=== PATIENT | female | born 1945 | race Caucasian/White ===

== ENCOUNTER 2018-04-07 17:40 | Inpatient (IN) | payer OTHER, MEDICARE ==
[~2018-04-07] VITALS: Ht 172.7 cm; Wt 59.4 kg
[~2018-04-07 17:40] MED LIST: CIPROFLOXACIN500 M2 PO; FLAGYL ER750 MG PO; FLAGYL500 MG PO; LIVER COMPLEX1 EACH PO; MAGNESIUM400 M1 PO; MULTI-DAY VITA1 EACH PO; VITAMIN D3400 UNI1 PO; ZYRTEC10 M6 PO; [UNRECOGNIZED DRUG - OTHER] PO
[2018-04-07 18:25] LABS: ABSOLUTE BASOPHIL COUNT 0 /CUMM (0.0-0.2); ABSOLUTE EOSINOPHIL COUNT 0.1 /CUMM (0.0-0.7); ABSOLUTE LYMPH COUNT 2.6 /CUMM (1.2-3.4); ABSOLUTE MONOCYTE COUNT 0.5 /CUMM (0.10-0.60); BASOPHIL % 0.5 % (0.0-2.0); EOSINOPHIL % 1.4 % (0-5); GRANULOCYTE % 60.2 % (42.2-75.2); HEMATOCRIT 42.8 % (37-47); MEAN CORPUSCULAR HGB 30.8 PG (27.0-31.0); MEAN CORPUSCULAR HGB CONC 33.8 G/DL (33.0-37.0); MEAN CORPUSCULAR VOLUME 91.2 FL (81.0-99.0); MEAN PLATELET VOLUME 7.6 FL (7.4-10.4); PLATELET COUNT 292 /CUMM (130-400); RBC DISTRIBUTION WIDTH 13.9 % (11.5-14.5); WHITE BLOOD CELL COUNT 8.3 /CUMM (4.8-10.8)
--- NOTE | 2018-04-07 18:33 | RADIOLOGY REPORT ---
EXAMINATION: XR CHEST CLINICAL INFORMATION: Chest pain COMPARISON: 07/24/2017 TECHNIQUE: 2 views of the chest were obtained. FINDINGS: The lungs are hyperinflated with no focal consolidation, pulmonary edema, or pleural effusion. Stable cardiomediastinal silhouette. IMPRESSION: No acute cardiopulmonary findings. Probable COPD.
--- NOTE | 2018-04-07 20:48 | ED CARDIAC/CP/PALPITATIONS ---
History of Present Illness General Chief Complaint: Chest Pain Stated Complaint: DIZZY,RACING HEART Source: patient, family Exam Limitations: no limitations Allergies Uncoded Allergies: DUST (Mild, TEARY 11/15/12) MOLD (Mild, TEARY 11/15/12) Reconcile Medications Cetirizine HCl (Zyrtec) 10 MG CAPSULE 1 CAP PO DAILY ALLERGIES (Reported) Cholecalciferol (Vitamin D3) (Vitamin D3) (Unknown Strength) TABLET 1 TAB PO DAILY SUPPLEMENT (Reported) Ciprofloxacin HCl 500 MG TABLET 1 TAB PO BID INFECTION . Genistein/Cit Zn Bisgly/Vit D3 (Feed Mill Operator-Gstn Capsule) 27 MG-20 MG-200 UNIT CAPSULE 1 CAP PO BID OSTEOPENIA (Reported) Magnesium Oxide (Magnesium) (Unknown Strength) CAPSULE 1 CAP PO DAILY SUPPLEMENT (Reported) Metronidazole (Flagyl) 500 MG TABLET 1 TAB PO TID INFECTION . Milk Thistle/Nac/Dandel/Turmer (Liver Complex Tablet) (Unknown Strength) TABLET 1 TAB PO DAILY SUPPLEMENT (Reported) Multivitamin (Multi-Day Vitamins) 1 EACH TABLET 1 TAB PO DAILY SUPPLEMENT ( Reported) Triage Note: triage: 72 Y/O FEMALE PRESENTS C/O POUNDING HEART, DIZZINESS SINCE THIS MORNING. HEART RATE APPEARS TO JUMP AROUND ON PORTABLE PULSE OXIMETER IN TRIAGE. HISTORY OF PACs (FOLLOWED BY DR WAGGONER). Triage Nurses Notes Reviewed? yes Onset: Abrupt Duration: day(s): (1), changing over time, continues in ED Timing: recent history Quality/Severity: moderate, pressure Location: central Radiation: no radiation Activities at Onset: none Prior Chest Pain/Card Workup: echocardiography, stress test Modifying Factors: Worsens With: movement. Nitro Today/Relief: no nitro taken today Aspirin Today: 325 mg x 1, provided at home Associated Symptoms: dizziness LMP (ages 10-50): post menopausal : No Patient currently breastfeeds: No HPI: 72-year-old female past medical history of migraine headaches, PACs present evaluation of palpitations chest pressure and dizziness. Patient reports she has a history of premature atrial contractions that cause her to have palpitations. She's been doing this for the past several months. She seen Dr. Waggoner and has had an echocardiogram and stress test which both were negative stress test was last month. She states that she usually would get some palpitations that they're pretty minor. Today she had much more palpitations than usual they were more intense associated with chest pressure and dizziness. States that the symptoms were intermittent and would come and go. Currently she has no chest pressure. She does feel dizzy especially with movement. No hemoptysis no lower extremity edema no recent surgery or recent trauma no history of A. fib she's not on any blood thinners no melena no bright red blood per rectum. No syncopal episodes. (Jong Hammond) Vital Signs & Intake/Output Vital Signs & Intake/Output Vital Signs Date Time Temp Pulse Resp B/P B/P Pulse O2 O2 Flow FiO2 Mean Ox Delivery Rate 04/07 2127 167 144/79 04/07 1749 96.8 112 16 121/75 98 (Cielo MOTTA,Lobo Maldonado) Past History Travel History Traveled to [place] past 21 day No Medical History Any Pertinent Medical History? 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 No (Jong Hammond) Review of Systems Review of Systems Constitutional: Reports: no symptoms. EENTM: Reports: no symptoms. Respiratory: Reports: no symptoms. Cardiovascular: Reports: see HPI, chest pain, palpitations. GI: Reports: no symptoms. Genitourinary: Reports: no symptoms. Musculoskeletal: Reports: no symptoms. Skin: Reports: no symptoms. Neurological/Psychological: Reports: see HPI (dizzy). Hematologic/Endocrine: Reports: no symptoms. Immunologic/Allergic: Reports: no symptoms. All Other Systems: Reviewed and Negative (Jong Hammond) Physical Exam Physical Exam General Appearance: well developed/nourished, no apparent distress, alert, awake , appears younger than stated age Head: atraumatic, normal appearance Eyes: Bilateral: normal appearance, PERRL, EOMI. Ears, Nose, Throat: normal pharynx, normal ENT inspection, hearing grossly normal Neck: normal inspection, supple, full range of motion Respiratory: normal breath sounds, chest non-tender, no respiratory distress, lungs clear Cardiovascular: normal peripheral pulses, tachycardia, irregularly irregular Peripheral Pulses: 2+ radial (R), 2+ radial (L) Gastrointestinal: soft, non-tender Back: normal inspection, normal range of motion, no vertebral tenderness Extremities: normal inspection, normal range of motion, no edema Neurologic/Psych: no motor/sensory deficits, awake, alert, oriented x 3, normal gait, normal mood/affect Skin: intact, normal color, warm/dry Lymphatic: no anterior cervical zen Core Measures ACS in differential dx? Yes CVA/TIA Diagnosis No Sepsis Present: No Sepsis Focused Exam Completed? No (Mario Alberto KHAN,Jong) Progress Differential Diagnosis: AMI, aortic dissection, atrial fibrillation, cholecystitis, CHF/pulm edema, hyperkalemia, hyperthyroid, myocarditis, pancreatitis, pericarditis, pneumonia, PSVT, PUD/GERD, PVCs/PACs, unstable angina, V-fib/V-Tach, WPW syndrome Diagnostic Imaging: Viewed by Me: CT Scan. Discussed w/RAD: CT Scan. Radiology Impression: PATIENT: EUNICE PEDROZA PRESENT AGE: 72 PATIENT ACCOUNT NO: [id number] : 46 LOCATION: [facility] ORDERING PHYSICIAN: Jong KHAN SERVICE DATE: 04/07/18 EXAM TYPE: CAT - CT HEAD WO IV CONTRAST CT HEAD WO IV CONTRAST CLINICAL INFORMATION: Dizziness COMPARISON: No prior CT scan available for comparison. TECHNIQUE: Department standard protocol. DLP: 607 mGy-cm FINDINGS: CEREBRAL HEMISPHERES: There is no evidence of intra-axial or extra-axial mass, hemorrhage or acute infarct. BRAIN PARENCHYMA: Normal nassar-white matter differentiation. SUBDURAL SPACE: No bleed. BASAL GANGLIA AND PINEAL GLAND: There is 7 mm hypodense structure in the LEFT basal ganglia deep to the sylvian fissure along the external capsule, this could be a lacunar infarct, versus cystic lesion versus prominent sulcus. This may require an MRI for further characterization. VENTRICLES: Symmetric and normal in size. CEREBELLUM AND BRAINSTEM: No space-occupying mass, hemorrhage or acute infarct. CEREBELLOPONTINE ANGLES: No lesion found. ORBITS: No intraorbital mass. VESSELS: Unremarkable SKULL BASE: Unremarkable INCLUDED SINUSES AT SKULL BASE: Clear SKULL AND SKIN: No fracture or bone lesion found. IMPRESSION: 1. No CT evidence of intracranial mass or acute infarct. 2. There is 7 mm hypodense fluid attenuation structure in the LEFT basal ganglia along the external capsule just deep to the sylvian fissure, this could be a cystic lesion, prominent deep sulcus versus lacunar infarct. Follow-up nonurgent MRI recommended. DICTATED BY: Christian Vinson MD DATE/TIME DICTATED:04/07/182106 SOCIAL GROUP WORKER:HONG DATE/TIME TRANSCRIBED:04/07/182106 CONFIDENTIAL, DO NOT COPY WITHOUT APPROPRIATE AUTHORIZATION. <Electronically signed in Other Vendor System> SIGNED BY: Alisson MOTTA,Mónicaeer 04/07/182114 Initial ED EKG: PARIED SUPRAVENTRCUALR CONTRACTIONS Repeat EKG: changed (rapid A. fib) (Mario Alberto KHAN,Jong) Plan of Care: Orders Procedure Date/time Status Heart Healthy Diet 04/08 B Active Misc Message 04/07 2141 Active ED Holding Orders 04/07 2141 Active Admit to inpatient 04/07 2141 Active Vital Signs 04/07 2141 Active Code Status 04/07 2141 Active Patient Data 04/07 213 Active Add-on Test (ER Only) 04/07 204 Active EKG 04/07 204 Active Add-on Test (ER Only) 04/07 1942 Active Add-on Test (ER Only) 04/07 1856 Active TSH REFLEX 04/07 1815 Complete PARTIAL THROMBOPLASTIN TIME 04/07 1815 Complete PROTHROMBIN TIME 04/07 181 Complete MAGNESIUM 04/07 181 Complete D-DIMER 04/07 181 Complete TROPONIN LEVEL 04/07 174 Complete COMPREHENSIVE METABOLIC PANEL 04/07 1749 Complete CBC WITHOUT DIFFERENTIAL 04/07 174 Complete EKG 04/07 1741 Active Current Medications Sig/Alvarez Start time Last Medication Dose Stop Time Status Admin Heparin Sodium 25,000 UNIT Q24H 04/07 2100 UNVr (Porcine) (Heparin) Sodium Chloride 500 ML Laboratory Tests 04/07/181814: Anion Gap 9, Estimated GFR > 60, BUN/Creatinine Ratio 22.2, Glucose 174 H, Calcium 9.6, Magnesium 2.2, Total Bilirubin 0.5, AST 48 H, ALT 51, Alkaline Phosphatase 103, Troponin I < 0.01, Total Protein 8.1, Albumin 4.4, Globulin 3.7 , Albumin/Globulin Ratio 1.2, TSH &T3 &Free T4 Intrp 3.330, PT 10.7, INR 0.98, APTT 32, D-Dimer High Sensitivty < 200, CBC w Diff NO MAN DIFF REQ, RBC 4.70, MCV 91.2, MCH 30.8, MCHC 33.8, RDW 13.9, MPV 7.6, Gran % 60.2, Lymphocytes % 31.4, Monocytes % 6.5, Eosinophils % 1.4, Basophils % 0.5, Absolute Granulocytes 5.0, Absolute Lymphocytes 2.6, Absolute Monocytes 0.5, Absolute Eosinophils 0.1, Absolute Basophils 0 She is here for evaluation of palpitations chest pressure and dizziness. On initial evaluation she is tachycardic to 112. EKG shows paired supraventricular premature contractions. Patient was placed on telemetry labs chest x-ray head CT ordered. Reevaluation compliance monitor revealed an irregularly irregular rhythm at a rate of 140s that appeared to be atrial fibrillation. This was confirmed on EKG. Spoke with Dr. Cody, supervisor ship maintenance services, recommends IV Cardizem and IV heparin. Patient will be admitted for new onset atrial fibrillation. Patient was given 10 mg of IV Cardizem with good effect her heart rate now is atrial fibrillation at a rate of 102. Case was discussed with Dr. Buck he agrees the plan. Remaining evaluation within normal limits. There was a cyst seen on the head CT and radiologist recommended follow-up MRI. No acute bleeds. Remaining lab work unremarkable. D-dimer negative. (Mario Alberto KHAN,Jong) Comments: 04/07/2018 8:49:21 PM during my evaluation of Eunice, she was complaining of a pronounced heartbeat. She appeared to be in rapid atrial fibrillation on the heart monitor and so an EKG has been ordered. I have notified the PA regarding this finding as he was on the phone with the supervisor ship maintenance services. fortunately the patient is currently minimally symptomatic (feeling a pronounced heartbeat). (Cielo MOTTA,Lobo Maldonado) Departure Departure Disposition: STILL A PATIENT Condition: Stable Clinical Impression Primary Impression: New onset atrial fibrillation Referrals: Colby MOTTA,Cecil Ordoñez (PCP/Family) Departure Forms: Customer Survey General Discharge Information Admission Note Spoke With: Ozzy Zaldivar MD Documentation of Exam: Documentation of any treatments & extenuating circumstances including Concerns Regarding Discharge (functional status, medication knowledge or non-compliance, living conditions, etc.) that warrant an admission rather than observation: [ Telemetry, serial labs, serial EKGs, cardiology consult, echocardiogram, IV heparin, IV Cardizem] (Jong Hammond) PA/TUBE MACHINE OPERATOR HELPER Co-Sign Statement Statement: ED Attending supervision documentation- [X] I saw and evaluated the patient. I have also reviewed all the pertinent lab results and diagnostic results. I agree with the findings and the plan of care as documented in the PA's/TUBE MACHINE OPERATOR HELPER's documentation. [] I have reviewed the ED Record and agree with the PA's/TUBE MACHINE OPERATOR HELPER's documentation. [] Additions or exceptions (if any) to the PAs/TUBE MACHINE OPERATOR HELPER's note and plan are summarized below: [] (Cielo MOTTA,Lobo Maldonado) Critical Care Note Critical Care Note Critical Care Time: 30-74 min (Cielo MOTTA,Lobo Maldonado)
--- NOTE | 2018-04-07 21:15 | CT SCAN REPORT ---
CT HEAD WO IV CONTRAST CLINICAL INFORMATION: Dizziness COMPARISON: No prior CT scan available for comparison. TECHNIQUE: Department standard protocol. DLP: 607 mGy-cm FINDINGS: CEREBRAL HEMISPHERES: There is no evidence of intra-axial or extra-axial mass, hemorrhage or acute infarct. BRAIN PARENCHYMA: Normal nassar-white matter differentiation. SUBDURAL SPACE: No bleed. BASAL GANGLIA AND PINEAL GLAND: There is 7 mm hypodense structure in the LEFT basal ganglia deep to the sylvian fissure along the external capsule, this could be a lacunar infarct, versus cystic lesion versus prominent sulcus. This may require an MRI for further characterization. VENTRICLES: Symmetric and normal in size. CEREBELLUM AND BRAINSTEM: No space-occupying mass, hemorrhage or acute infarct. CEREBELLOPONTINE ANGLES: No lesion found. ORBITS: No intraorbital mass. VESSELS: Unremarkable SKULL BASE: Unremarkable INCLUDED SINUSES AT SKULL BASE: Clear SKULL AND SKIN: No fracture or bone lesion found. IMPRESSION: 1. No CT evidence of intracranial mass or acute infarct. 2. There is 7 mm hypodense fluid attenuation structure in the LEFT basal ganglia along the external capsule just deep to the sylvian fissure, this could be a cystic lesion, prominent deep sulcus versus lacunar infarct. Follow-up nonurgent MRI recommended.
[2018-04-07 21:16] LABS: PT 10.7 SEC (9.4-12.5); PTT 32 SEC (25-37)
[2018-04-07] MEDS ORDERED: CARDIZEM CD180 M1 PO (22:44)
[2018-04-07] MEDS ORDERED: PROBIOTIC1 EACH PO (22:45)
[2018-04-07] MEDS ORDERED: OMEGA 3-6-9 11200 MG PO (22:45)
[2018-04-07] MEDS ORDERED: CO-ENZYME Q101 EACH PO (22:46)
[2018-04-07] MEDS ORDERED: VITAMIN C500 M7 PO (22:47)
--- NOTE | 2018-04-07 23:10 | History & Physical ---
Shahab Buckley 04/07/18 3283: General Information and HPI MD Statement: I have seen and personally examined NICKI PEDROZA and documented this H&P. The patient is a 72 year old F who presented with a patient stated chief complaint of PALPITATIONS, CHEST PRESSURE, DIZZINESS. Source of Information: patient, old records Exam Limitations: no limitations History of Present Illness: Patient is a 72-year-old female with past medical history of migraine headaches, PACs, osteopenia, knee arthroplasty, and an episode of colitis who presents with palpitations, chest pressure and dizziness. Patient states that she experienced a pounding in her chest with some complaints of left chest tightness. This lasted for roughly 2 hours, then resolved, then recurred again which prompted her to drive her to the emergency department. She has no significant cardiac history. Family history is notable for CVA/HTN in multiple first and second-degree relatives. Following discovery of PACs detected with preop testing, patient saw Dr. Dumas. She underwent echocardiography and nuclear exercise stress testing that was reportedly negative. Started on diltiazem, proceeded with IV vitrectomy. She drinks a cup of coffee a day and 4 alcoholic drinks weekly. She has good exercise tolerance, states that she has normal resting bradycardia heart rate 50s-60s. On presentation her vitals were notable for irregular heart rate ranging from 110-170. CBC and chemistries were unremarkable. Thyroid function, troponin, d-dimer were all within normal limits. She had an incidental finding on head CT of a basal ganglia cystic lesion. Chest x-ray showed hyperinflation without acute cardiopulmonary disease. Echocardiogram from December 2017 showed normal LVEF and pulmonary hypertension she was started on a heparin drip and given 10 mg and 50 mg of Cardizem with subsequent conversion to NSR on the telemetry unit. Physical exam was unremarkable. Allergies/Medications Allergies: Uncoded Allergies: DUST (Mild, TEARY 11/15/12) MOLD (Mild, TEARY 11/15/12) Home Med list Ascorbic Acid (Vitamin C) 500 MG CAPSULE.ER 1 CAP PO DAILY Supplement ( Reported) Cholecalciferol (Vitamin D3) (Vitamin D3) (Unknown Strength) TABLET 2,000 MG PO DAILY SUPPLEMENT (Reported) Diltiazem HCl (Cardizem Cd) 180 MG CAP.ER.24H 1 CAP PO DAILY HEART HEALTH ( Reported) UNSURE OF DOSE Fish Oil/Borage/Flax/Om3,6,9#1 (Queen 3-6-9 1,200 MG Softgel) 1,200 MG CAPSULE 1 CAP PO DAILY Supplement (Reported) Lactobacillus Acidophilus (Probiotic) 10 BILLION CELL CAPSULE 1 CAP PO TID STOMACH HEALTH (Reported) Magnesium Oxide (Magnesium) (Unknown Strength) CAPSULE 400 MG PO DAILY SUPPLEMENT (Reported) Multivitamin (Multi-Day Vitamins) 1 EACH TABLET 1 TAB PO DAILY SUPPLEMENT ( Reported) Ubidecarenone/Vit E/Vit E Mix (Co-Enzyme Q10 100 MG Softgel) 100 MG-20 MG-15 MG CAPSULE 1 TAB PO DAILY Supplement (Reported) Compliance With Home Meds: GOOD Past History Travel History Traveled to [place] past 21 day No Medical History Neurological: migraine EENT: allergies, cataracts Cardiovascular: PACs Respiratory: NONE Gastrointestinal: NONE Hepatic: NONE Renal: NONE Musculoskeletal: osteopenia Psychiatric: NONE Endocrine: NONE Blood Disorders: NONE Cancer(s): NONE TRIP RIDER/Reproductive: NONE History of MRSA: No History of VRE: No History of CDIFF: No Surgical History Surgical History: R knee arthroscopy Past Family/Social History Psychosocial History Where do you live? Home Who Do You Live With? spouse Services at Home: None Primary Language: Mongolian Smoking Status: Never Smoked ETOH Use: occasional use Illicit Drug Use: denies illicit drug use Functional Ability ADLs Independent: dressing, eating, toileting, bathing. Ambulation: independent IADLs Independent: shopping, housework, finances, food prep, telephone, transportation , medication admin. Review of Systems Review of Systems Constitutional: Reports: no symptoms. Cardiovascular: Reports: see HPI, chest pain, palpitations. All Other Systems: Reviewed and Negative Exam & Diagnostic Data Last 24 Hrs of Vital Signs/I&O Vital Signs Date Time Temp Pulse Resp B/P B/P Pulse O2 O2 Flow FiO2 Mean Ox Delivery Rate 04/08 0641 98.1 59 18 120/60 98 Room Air 04/08 0507 54 120/60 04/08 0014 98.0 110 18 110/70 94 Room Air 04/07 2250 97.9 143 16 129/82 04/07 2247 97.9 143 18 129/82 97 Room Air 04/07 2137 167 144/79 04/07 2127 167 144/79 04/07 2017 Room Air 04/07 1749 96.8 112 16 121/75 98 Intake & Output 04/08 1600 04/08 0800 04/08 0000 Intake Total 360 Output Total Balance 360 Intake, Oral 360 Patient 129 lb Weight Weight Bed scale Measurement Method Physical Exam General Appearance Alert, Oriented X3, Cooperative, No Acute Distress Skin No Rashes, No Breakdown, No Significant Lesion Skin Temp/Moisture Exam: Warm/Dry HEENT Atraumatic, PERRLA, EOMI, Mucous Membr. moist/pink Neck Supple, No JVD, No thryomegaly Cardiovascular Regular Rate, Normal S1, Normal S2, No Murmurs, Gallops, Rubs Lungs Clear to Auscultation, Normal Air Movement Abdomen Normal Bowel Sounds, Soft, No Tenderness, No Hepatospenomegaly, No Masses Neurological Normal Speech, Strength at 5/5 X4 Ext, Normal Tone, Sensation Intact, Cranial Nerves 3-12 NL Extremities No Clubbing, No Cyanosis, No Edema, Normal Pulses, No Tenderness/ Swelling Last 24 Hrs of Labs/Haresh: Laboratory Tests 04/08/18 0600: D-Dimer High Sensitivty Cancelled 04/08/18 0455: Anion Gap 6, Estimated GFR > 60, BUN/Creatinine Ratio 23.8, Magnesium 2.3, Troponin I < 0.01, APTT > 120 *H, CBC w Diff NO MAN DIFF REQ, RBC 4.45, MCV 91.6 , MCH 30.9, MCHC 33.7, RDW 13.8, MPV 7.8, Gran % 49.1, Lymphocytes % 43.3, Monocytes % 5.9, Eosinophils % 1.4, Basophils % 0.3, Absolute Granulocytes 4.1, Absolute Lymphocytes 3.6 H, Absolute Monocytes 0.5, Absolute Eosinophils 0.1, Absolute Basophils 0 04/08/18 0055: Troponin I < 0.01 04/07/18 1815: Anion Gap 9, Estimated GFR > 60, BUN/Creatinine Ratio 22.2, Glucose 174 H, Calcium 9.6, Magnesium 2.2, Total Bilirubin 0.5, AST 48 H, ALT 51, Alkaline Phosphatase 103, Troponin I < 0.01, Total Protein 8.1, Albumin 4.4, Globulin 3.7 , Albumin/Globulin Ratio 1.2, TSH &T3 &Free T4 Intrp 3.330, PT 10.7, INR 0.98, APTT 32, D-Dimer High Sensitivty < 200, CBC w Diff NO MAN DIFF REQ, RBC 4.70, MCV 91.2, MCH 30.8, MCHC 33.8, RDW 13.9, MPV 7.6, Gran % 60.2, Lymphocytes % 31.4, Monocytes % 6.5, Eosinophils % 1.4, Basophils % 0.5, Absolute Granulocytes 5.0, Absolute Lymphocytes 2.6, Absolute Monocytes 0.5, Absolute Eosinophils 0.1, Absolute Basophils 0 Diagnostic Data EKG Results On admission, supraventricular contractions Currently, NSR CXR Results No acute cardiopulmonary findings Assessment/Plan Assessment: Patient is a 72-year-old female with past medical history of migraine headaches, PACs, osteopenia, knee arthroplasty, and an episode of colitis who presents with palpitations, chest pressure and dizziness. Problem list/plan: New onset atrial fibrillation DVT prophylaxis: Heparin drip and leg squeeze Heart healthy diet Patient is full code As Ranked By This Provider Problem List: 1. New onset atrial fibrillation Core Measures/Misc (04/30) Acute Coronary Syndrome ACS Diagnosis: No Congestive Heart Failure Congestive Heart Failure Diagnosis No Cerebrovascular Accident CVA/TIA Diagnosis: No VTE (View Protocol) VTE Risk Factors Acute Medical Illness No Mechanical VTE Prophylaxis d/t N/A MechProphylax Ordered No VTE Pharm Prophylaxis d/t NA PharmProphylax ordered Sepsis (View protocol) Sepsis Present: No If YES complete Sepsis Event Note If YES complete Sepsis Event Note Raphael Pino MD 04/08/18 0421: Core Measures/Misc (04/30) Sepsis (View protocol) If YES complete Sepsis Event Note If YES complete Sepsis Event Note Resident Review Statement Resident Statement: examined this patient, discussed with medical intern, agreed with medical intern, reviewed EMR data (avail) Other Findings: 72 year old female with PMH significant for migraines presents with new onset atrial fibrillation. She had sudden onset palpitations, lightheadedness, weakness, and pounding in her chest with some complaints of left chest tightness. It lasted for about two hours, then resolved, until recurring again precipitating her driving her to ED for evaluation. She doesn't have significant cardiac history. FH notable for CVA/HTN in multiple first and second degree relatives. She did see Dr. Dumas as a result of PACs detected on preoperative testing with noticeable palpitations. She underwent echocardiography and nuclear exercise stress testing that was reportedly negative. She was started on Diltiazem XL and proceeded with R eye vitrectomy uneventfully. She drinks 1 cup of coffee daily and four alcoholic drinks weekly. She has good exercise tolerance and states she normally has resting bradycardia into the HR 50s-60s. She never smoked but does report significant second hand exposure. On presentation, her vitals were notable for irregular heart rate ranging from 110-170. Her CBC, chemistries were unremarkable. Her thyroid function was within normal limits, initial troponin and d-Dimer were negative. She had an incidental finding on head CT of 7mm left basal ganglia cystic lesion vs lacunar infarct. Chest x-ray showed hyperinflation without acute cardiopulmonary disease. Her echocardiogram from 12/2017 showed normal LVEF and pulmonary hypertension RVSP 45-50mmHg. She was started on a heparin gtt and given 10mg and 15mg of cardizem IVP with subsequent conversion to NSR on the telemetry unit. Her physical exam was AAOx3, NAD, no JVD or carotid bruits, RRR s1 s2 no murmurs, lungs cta, abdomen soft nt/nd bs+, no peripheral edema and normal peripheral pulses. New onset atrial fibrillation: Admit to telemetry, monitor for tachy or ghada arrhythmias Continue heparin gtt for anticoagulation, CHADSvasc of 1, consider aspirin Cardiology consultation Check serial troponins and EKGs to evaluate for myocardial ischemia No need for repeat echocardiography at this time Add diltiazem 30mg po q8h if needed for rate control She is currently NSR in the 60s after spontaneous cardioversion Heart healthy diet DVT ppx-on heparin gtt Full code Kayley MOTTA,Ozzy Silver 04/08/18 0546: Core Measures/Misc (04/30) Sepsis (View protocol) If YES complete Sepsis Event Note If YES complete Sepsis Event Note Attending MD Review Statement Attending Statement Attending MD Statement: examined this patient, discuss w/resident/PA/ARCHITECTURAL COATING FINISHER, agreed w/resident/PA/ARCHITECTURAL COATING FINISHER Attending Assessment/Plan: 72 year-old presents with symptomatic rapid atrial fibrillation, new onset, had been started on jack blockade for frequent PAC's/PVC's (indeed- her first EKG in the ER demonstrated couplets of PAC's, before devolving into a rapid atrial fibrillation, in which she remains). Recent provocative testing done in last month was negative. Echocardiogram was done at that time and does not imply significant structural heart disease. She is in tune with her cardiac symptoms, and aware of these PAC's when they occur- and she is aware of ongoing palpitations and dizziness presently. Blood pressure remained stable but heart rates are approaching 150. Troponin negative. Incidental finding of hypodensity on the CT in the left basal ganglia would deserve follow up MRI in the future. Admit to inpatient for jack blockade and systemic anticoagulation for new onset atrial fibrillation. IV heparin and IV Cardizem bolus; drip to follow if necessary. Repeat cardiac enzymes. Will request Cardiology consultation. Converted back to sinus at 1AM.
[2018-04-08 00:14] VITALS: BP 110/70
[2018-04-08 05:43] LABS: ABSOLUTE BASOPHIL COUNT 0 /CUMM (0.0-0.2); ABSOLUTE EOSINOPHIL COUNT 0.1 /CUMM (0.0-0.7); ABSOLUTE GRANULOCYTE CT 4.1 /CUMM (1.4-6.5); ABSOLUTE LYMPH COUNT 3.6 /CUMM (1.2-3.4); ABSOLUTE MONOCYTE COUNT 0.5 /CUMM (0.10-0.60); BASOPHIL % 0.3 % (0.0-2.0); EOSINOPHIL % 1.4 % (0-5); GRANULOCYTE % 49.1 % (42.2-75.2); HEMATOCRIT 40.7 % (37-47); MEAN CORPUSCULAR HGB 30.9 PG (27.0-31.0); MEAN CORPUSCULAR HGB CONC 33.7 G/DL (33.0-37.0); MEAN CORPUSCULAR VOLUME 91.6 FL (81.0-99.0); MEAN PLATELET VOLUME 7.8 FL (7.4-10.4); PLATELET COUNT 288 /CUMM (130-400); RBC DISTRIBUTION WIDTH 13.8 % (11.5-14.5); RED BLOOD CELL CT 4.45 /CUMM (4.20-5.40); WHITE BLOOD CELL COUNT 8.4 /CUMM (4.8-10.8)
[2018-04-08 06:03] LABS: PTT > 120 SEC (25-37)
[2018-04-08 06:41] VITALS: BP 120/60
--- NOTE | 2018-04-08 09:46 | PN- Housestaff ---
Gavi MOTTA,Fausto 04/08/18 0946: Subjective Follow-up For: New onset atrial fibrillation Tele-Events Since Last Visit: Atrial fibrillation Heart rate 50s-100s Subjective: Patient seen and examined. She is seen sitting upright in bed resting comfortably. She appears to be in no acute distress. At her bedside is her . Patient states that she feels well and has no complaints and denies any further palpitations, chest pressure, or dizziness. She remains on anticoagulation and has concerns about remaining on it long-term as she has an active lifestyle and is worried about bleeding. She states that she feels as if she is at her baseline and would like to go home. Specifically she denies any fever, chills, current chest pain/pressure, shortness breath, neurologic symptoms, or abdominal pain per Review of Systems Constitutional: Reports: see HPI. Objective Last 24 Hrs of Vital Signs/I&O Vital Signs Date Time Temp Pulse Resp B/P B/P Pulse O2 O2 Flow FiO2 Mean Ox Delivery Rate 04/08 1356 97.5 65 20 128/66 96 Room Air Room Air 04/08 1353 65 128/66 04/08 0641 98.1 59 18 120/60 98 Room Air 04/08 0507 54 120/60 04/08 0014 98.0 110 18 110/70 94 Room Air 04/07 2250 97.9 143 16 129/82 04/07 2247 97.9 143 18 129/82 97 Room Air 04/07 2137 167 144/79 04/07 2127 167 144/79 04/07 2017 Room Air 04/07 1749 96.8 112 16 121/75 98 Intake & Output 04/08 1600 04/08 0800 04/08 0000 Intake Total 740.4 360 Output Total Balance 740.4 360 Intake, IV 140.4 Intake, Oral 600 360 Number 0 Bowel Movements Patient 58.287 kg Weight Weight Bed scale Measurement Method Physical Exam General Appearance: Alert, Oriented X3, Cooperative, No Acute Distress Other Physical Findings: General - well developed, thin elderly woman in no acute distress HEENT - NCAT, PERRL, EOMI, anicteric sclera Neck- Supple, no JVD/HJR, no bruits, trachea midline, thyroid normal Cardio - S1, S2 w/o murmurs/gallops/rubs; regular rate and rhythm Resp - Clear to auscultation bilaterally GI - Soft, nontender, nondistended, bowel sounds present Neuro - Awake and alert, CN II - XII grossly intact Extremities - No edema, pulses intact Current Medications: Current Medications Sig/Alvarez Start time Last Medication Dose Route Stop Time Status Admin Acetaminophen 650 MG Q6P PRN 04/08 0030 AC PO Apixaban 5 MG BID 04/08 2100 UNVr PO Diltiazem HCl 30 MG Q8 04/08 0600 AC 04/08 PO 1353 Diltiazem HCl 15 MG ONCE ONE 04/07 2230 DC 04/07 IV 04/07 Diltiazem HCl 0 .STK-MED ONE 04/07 2117 DC .ROUTE Diltiazem HCl 10 MG ONCE ONE 04/07 2100 DC 04/07 IV 04/07 Heparin Sodium 25,000 UNIT Q24H 04/070 DC 04/07 (Porcine) IV 220 Sodium Chloride 500 ML Heparin Sodium 0 .STK-MED ONE 04/07 2117 DC (Porcine) .ROUTE Heparin Sodium 4,000 UNIT ONCE ONE 04/07 2100 DC 04/07 (Porcine) IV 04/07 Heparin Sodium 25,000 UNIT Q24H 04/07 2100 CAN (Porcine) IV Sodium Chloride 500 ML Last 24 Hrs of Lab/Haresh Results Last 24 Hrs of Labs/Mics: Laboratory Tests 04/08/18 1255: APTT 87 H 04/08/18 0600: D-Dimer High Sensitivty Cancelled 04/08/18 0455: Anion Gap 6, Estimated GFR > 60, BUN/Creatinine Ratio 23.8, Magnesium 2.3, Troponin I < 0.01, APTT > 120 *H, CBC w Diff NO MAN DIFF REQ, RBC 4.45, MCV 91.6 , MCH 30.9, MCHC 33.7, RDW 13.8, MPV 7.8, Gran % 49.1, Lymphocytes % 43.3, Monocytes % 5.9, Eosinophils % 1.4, Basophils % 0.3, Absolute Granulocytes 4.1, Absolute Lymphocytes 3.6 H, Absolute Monocytes 0.5, Absolute Eosinophils 0.1, Absolute Basophils 0 04/08/18 0055: Troponin I < 0.01 04/07/18 1815: Anion Gap 9, Estimated GFR > 60, BUN/Creatinine Ratio 22.2, Glucose 174 H, Calcium 9.6, Magnesium 2.2, Total Bilirubin 0.5, AST 48 H, ALT 51, Alkaline Phosphatase 103, Troponin I < 0.01, Total Protein 8.1, Albumin 4.4, Globulin 3.7 , Albumin/Globulin Ratio 1.2, TSH &T3 &Free T4 Intrp 3.330, PT 10.7, INR 0.98, APTT 32, D-Dimer High Sensitivty < 200, CBC w Diff NO MAN DIFF REQ, RBC 4.70, MCV 91.2, MCH 30.8, MCHC 33.8, RDW 13.9, MPV 7.6, Gran % 60.2, Lymphocytes % 31.4, Monocytes % 6.5, Eosinophils % 1.4, Basophils % 0.5, Absolute Granulocytes 5.0, Absolute Lymphocytes 2.6, Absolute Monocytes 0.5, Absolute Eosinophils 0.1, Absolute Basophils 0 Assessment/Plan Assessment: 72-year-old woman with no significant past medical history seen for evaluation of palpitations, chest pressure, and dizziness found to be in new onset atrial fibrillation for which she was admitted to the telemetry floor. Patient spontaneously converted to normal sinus rhythm overnight. Patient received several IV pushes of Cardizem last evening with heart rates now within normal limits. Presently patient states that she feels well and is at baseline. Physical examination demonstrates a normal cardiopulmonary exam. Labs including CBC, and serum chemistry remain within normal limits. Serial troponin /EKG are unremarkable. TSH is within normal limits. Patient was seen by cruise consultant whom recommended transitioning heparin to oral Eliquis. Patient is an anticipated discharge to home tomorrow. Problem list -New onset atrial fibrillation, now in normal sinus rhythm -7 mm hypodense fluid attenuation structure in left basal ganglia -History of migraine headache -Osteopenia Plan -Continue telemetry admission -Telemetry monitoring -Switch cardizem back to CD 120 mg PO Daily -Switch heparin GGT to Eliquis 5 mg p.o. twice daily -consult with cardiology for new onset atrial fibrillation -no repeat echocardiogram at this time, patient had recent outpatient echocardiogram -Pain control with acetaminophen -Heart healthy diet -DVT prophylaxis with Eliquis -Full code -outpatient MRI for further characterization of basal ganglia cyst versus lacunar infarct -Outpatient pulmonology revaluation for pulmonary hypertension Problem List: 1. New onset atrial fibrillation Pain Ratin Pain Location: None Pain Goal: Remain pain free Pain Plan: See assessment Tomorrow's Labs & Rationales: ZORA Hollingsworth MD,Luis 04/08/18 1136: Attending MD Review Statement Attending Statement Attending MD Statement: examined this patient, discuss w/resident/PA/CREDIT RATING INSPECTOR, agreed w/resident/PA/CREDIT RATING INSPECTOR, discussed with family, reviewed EMR data (avail), discussed with nursing, amended to note Attending Assessment/Plan: Patient seen and examined. Lying comfortably in bed. Not in any acute distress. present at bedside. On the monitor she remains in atrial fibrillation. She was in rapid A. fib early on but has currently converted back to normal sinus rhythm. She is currently on anticoagulation with heparin infusion. Denies chest pain or shortness of breath. Denies palpitations. On examination heart sounds are regular. Lungs are clear to auscultation bilaterally. She has no peripheral edema. Problems: 1. Newly diagnosed atrial fibrillation 2. History of colitis. 3. History of PACs on jack blockage with Cardizem prior to hospitalization 4. Pulmonary hypertension Plan: -Patient is currently in sinus rhythm. Follow-up with the cardiology service regarding rate control medications. She presented in rapid A. fib despite her Cardizem 120 mg daily at home. -She has a ALVARO-VASC score of 2 placing her moderate to high risk for embolic events. Transition patient from heparin to Eliquis after evaluation by the cardiology service. -She had a recent echocardiogram that did not reveal any significant structural heart disease. Will hold off repeat an echocardiogram for now. -Echocardiogram did reveal pulmonary hypertension. Would recommend referral to the pulmonology service as an outpatient for further workup. heart disease. Will hold off repeat an echocardiogram for now. -Echocardiogram did reveal pulmonary hypertension. Would recommend referral to the pulmonology service as an outpatient for further workup.
--- NOTE | 2018-04-08 13:15 | Cons- Cardiology ---
General Information and HPI Consulting Request Date of Consult: 04/08/18 Requested By: Ozzy Zaldivar MD History of Present Illness: 72 year old patient with past medical history of migraine headaches, PACs, osteopenia, knee arthroplasty, and an episode of colitis, presented on 04/07 with palpitations, chest pressure and dizziness. Mrs Rai was feeling a pounding heart beat in the morning, which subsided after 2 hours, but when it recurred, along with lightheadedness and retrosternal pressure, she came to the ED, where she was found to be in new onset Atrial Fibrillation, which converted spontaneously to sinus rhythm. Troponins have been negative X 3 and no electrolyte imbalance was detected. Mrs Rai was evaluated by dr Dumas recently for palpitations, and an echocardiogram performed in 10/2017 showed a normal LVEF without any wall motion abnormalities, and mild thickening of the mitral leaflets. Allergies/Medications Allergies: Uncoded Allergies: DUST (Mild, TEARY 11/15/12) MOLD (Mild, TEARY 11/15/12) Home Med List: Ascorbic Acid (Vitamin C) 500 MG CAPSULE.ER 1 CAP PO DAILY Supplement ( Reported) Cholecalciferol (Vitamin D3) (Vitamin D3) (Unknown Strength) TABLET 2,000 MG PO DAILY SUPPLEMENT (Reported) Diltiazem HCl (Cardizem Cd) 180 MG CAP.ER.24H 1 CAP PO DAILY HEART HEALTH ( Reported) UNSURE OF DOSE Fish Oil/Borage/Flax/Om3,6,9#1 ([place] 3-6-9 1,200 MG Softgel) 1,200 MG CAPSULE 1 CAP PO DAILY Supplement (Reported) Lactobacillus Acidophilus (Probiotic) 10 BILLION CELL CAPSULE 1 CAP PO TID STOMACH HEALTH (Reported) Magnesium Oxide (Magnesium) (Unknown Strength) CAPSULE 400 MG PO DAILY SUPPLEMENT (Reported) Multivitamin (Multi-Day Vitamins) 1 EACH TABLET 1 TAB PO DAILY SUPPLEMENT ( Reported) Ubidecarenone/Vit E/Vit E Mix (Co-Enzyme Q10 100 MG Softgel) 100 MG-20 MG-15 MG CAPSULE 1 TAB PO DAILY Supplement (Reported) Current Medications: Current Medications Sig/Alvarez Start time Last Medication Dose Route Stop Time Status Admin Acetaminophen 650 MG Q6P PRN 04/08 0030 AC PO Diltiazem HCl 30 MG Q8 04/08 0600 AC PO Diltiazem HCl 15 MG ONCE ONE 04/070 DC 04/07 IV 04/07 Diltiazem HCl 0 .STK-MED ONE 04/07 2117 DC .ROUTE Diltiazem HCl 10 MG ONCE ONE 04/07 2100 DC 04/07 IV 04/07 Heparin Sodium 25,000 UNIT Q24H 04/07 2230 AC 04/07 (Porcine) IV 2204 Sodium Chloride 500 ML Heparin Sodium 0 .STK-MED ONE 04/07 2117 DC (Porcine) .ROUTE Heparin Sodium 4,000 UNIT ONCE ONE 04/07 2100 DC 04/07 (Porcine) IV 04/07 Heparin Sodium 25,000 UNIT Q24H 04/07 2100 CAN (Porcine) IV Sodium Chloride 500 ML Review of Systems Review of Systems: See HPI. 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 Home Who Do You Live With? spouse Services at Home: None Primary Language: Czech Smoking Status: Never Smoked ETOH Use: occasional use Illicit Drug Use: denies illicit drug use Functional Ability ADLs Independent: dressing, eating, toileting, bathing. Ambulation: independent IADLs Independent: shopping, housework, finances, food prep, telephone, transportation , medication admin. Exam & Diagnostic Data Vital Signs and I&O Vital Signs Date Time Temp Pulse Resp B/P B/P Pulse O2 O2 Flow FiO2 Mean Ox Delivery Rate 04/08 0641 98.1 59 18 120/60 98 Room Air 04/08 0507 54 120/60 04/08 0014 98.0 110 18 110/70 94 Room Air 04/07 2250 97.9 143 16 129/82 04/07 2247 97.9 143 18 129/82 97 Room Air 04/07 2137 167 144/79 04/07 2127 167 144/79 04/07 2017 Room Air 04/07 1749 96.8 112 16 121/75 98 Intake & Output 04/08 1600 04/08 0804/08 0000 04/07 1600 08/25 0800 08/25 0000 Intake Total 360 Output Total Balance 360 Intake, Oral 360 Patient 129 lb Weight Weight Bed scale Measurement Method Physical Exam: General Appearance Alert, Oriented X3, Cooperative, No Acute Distress HEENT Atraumatic, PERRLA, EOMI, Mucous Membr. moist/pink Neck Supple, No JVD, trachea midline Cardiovascular Regular Rate, Normal S1, Normal S2, No audible Murmurs or Rub Lungs Clear to Auscultation, Normal Air Movement Abdomen Normal Bowel Sounds, Soft, No Tenderness, No Hepatospenomegaly Neurological Normal Speech, Strength at 5/5 X4 Ext, Normal Tone, Sensation Intact Extremities No Cyanosis, No Edema, good capillary refill, No Tenderness/Swelling Assessment/Plan Assessment/Plan New onset atrial fibrillation. CHADS2 score 3. Patient started on heparin and cardizem PO, Rhythm control strategy is reasonable given patient's spontaneous conversion to SR yesterday. If she reverts in afib, a PADMA should be done with subsequent treatment with antiarrhythmics (sotalol, tambocor... assuming there is no ischemic coronary disease.). heparin can be stopped and patient started on eliquis 5 mg PO bid. Mrs Rai will need a nuclear stress test as part of her new onset afib. workup ( i do not see a report for a stress test in her EMR). Consult Acknowledgment - Thank you for your consult request.
[2018-04-08 13:56] VITALS: BP 128/66
[2018-04-08 14:10] LABS: PTT 87 SEC (25-37)
[2018-04-08 22:19] VITALS: BP 124/76
[2018-04-09 07:22] VITALS: BP 116/64
[2018-04-09 08:07] LABS: ABSOLUTE BASOPHIL COUNT 0 /CUMM (0.0-0.2); ABSOLUTE EOSINOPHIL COUNT 0.1 /CUMM (0.0-0.7); ABSOLUTE LYMPH COUNT 2.3 /CUMM (1.2-3.4); ABSOLUTE MONOCYTE COUNT 0.4 /CUMM (0.10-0.60); BASOPHIL % 0.4 % (0.0-2.0); EOSINOPHIL % 1.8 % (0-5); GRANULOCYTE % 51.4 % (42.2-75.2); HEMATOCRIT 42.4 % (37-47); MEAN CORPUSCULAR HGB 31.4 PG (27.0-31.0); MEAN CORPUSCULAR VOLUME 92.1 FL (81.0-99.0); MEAN PLATELET VOLUME 7.7 FL (7.4-10.4); PLATELET COUNT 270 /CUMM (130-400); RBC DISTRIBUTION WIDTH 14.1 % (11.5-14.5); WHITE BLOOD CELL COUNT 5.9 /CUMM (4.8-10.8)
[2018-04-09 08:13] VITALS: BP 120/68
--- NOTE | 2018-04-09 08:24 | PN- Housestaff ---
Altagracia Salas MD 04/09/18 0824: Subjective Follow-up For: neww onset afib Subjective: no cmplaints. vitals stable.. no tele events. Review of Systems Constitutional: Reports: no symptoms. Cardiovascular: Reports: no symptoms. Respiratory: Reports: no symptoms. Gastrointestinal: Reports: no symptoms. Objective Last 24 Hrs of Vital Signs/I&O Vital Signs Date Time Temp Pulse Resp B/P B/P Pulse O2 O2 Flow FiO2 Mean Ox Delivery Rate 04/09 1434 97.6 87 18 112/72 97 04/09 0813 120/68 04/09 0722 97.5 63 18 116/64 98 Room Air Intake & Output 04/09 1600 04/09 0800 04/09 0000 Intake Total 480 360 400 Output Total Balance 480 360 400 Intake, Oral 480 360 400 Patient 131 lb Weight Physical Exam General Appearance: Alert, Oriented X3, Cooperative, No Acute Distress Skin: No Rashes, No Breakdown, No Significant Lesion Skin Temp/Moisture Exam: Warm/Dry HEENT: Atraumatic, PERRLA, EOMI Cardiovascular: Regular Rate, Normal S1, Normal S2, No Murmurs Lungs: Clear to Auscultation, Normal Air Movement Abdomen: Normal Bowel Sounds, Soft, No Tenderness, No Hepatospenomegaly Extremities: No Clubbing, No Cyanosis, No Edema, Normal Pulses Vascular: Normal Pulses, Pulses Symmetrical Current Medications: Current Medications Sig/Alvarez Start time Last Medication Dose Route Stop Time Status Admin Acetaminophen 650 MG Q6P PRN 04/08 0030 DCD PO Apixaban 5 MG BID 04/08 2100 DCD 04/09 PO 0810 Diltiazem HCl 120 MG DAILY 04/09 0900 DCD 04/09 PO 0811 Diltiazem HCl 30 MG Q8 04/08 0600 DC 04/08 PO 04/09 0000 2101 Last 24 Hrs of Lab/Haresh Results Last 24 Hrs of Labs/Mics: Laboratory Tests 04/09/18 0705: CBC w Diff NO MAN DIFF REQ, RBC 4.60, MCV 92.1, MCH 31.4 H, MCHC 34.0, RDW 14.1 , MPV 7.7, Gran % 51.4, Lymphocytes % 40.1, Monocytes % 6.3, Eosinophils % 1.8, Basophils % 0.4, Absolute Granulocytes 3.0, Absolute Lymphocytes 2.3, Absolute Monocytes 0.4, Absolute Eosinophils 0.1, Absolute Basophils 0 Assessment/Plan Assessment: 72-year-old woman with no significant past medical history seen for evaluation of palpitations, chest pressure, and dizziness found to be in new onset atrial fibrillation for which she was admitted to the telemetry floor. Patient spontaneously converted to normal sinus rhythm overnight. Patient received several IV pushes of Cardizem last evening with heart rates now within normal limits. Presently patient states that she feels well and is at baseline. Physical examination demonstrates a normal cardiopulmonary exam. Labs including CBC, and serum chemistry remain within normal limits. Serial troponin /EKG are unremarkable. TSH is within normal limits. Patient was seen by surgical product sales consultant whom recommended transitioning heparin to oral Eliquis. Patient is an anticipated discharge to home tomorrow. Problem list -New onset atrial fibrillation, now in normal sinus rhythm -7 mm hypodense fluid attenuation structure in left basal ganglia -History of migraine headache -Osteopenia Plan -Continue telemetry admission -Switched cardizem back to CD 120 mg PO Daily adn we will continue this outpatient -Switch heparin GGT to Eliquis 5 mg p.o. twice daily and we have given patient a coupon for a free month to use at her drug store. [facility] is [facility]. -consulted with cardiology for new onset atrial fibrillation and she will follow up with dr. dumas outpatient. is requesting to speak with dr. dumas however he is not available as he is in the analytical lab analyst at [facility]. -had recent march 13 stress test which was completely normal -no repeat echocardiogram at this time, patient had recent outpatient echocardiogram showing pulmonary hypertension with no structural heart disease. -Pain control with acetaminophen -Heart healthy diet -DVT prophylaxis with Eliquis -Full code -outpatient MRI for further characterization of basal ganglia cyst versus lacunar infarct suggested by dr. cosby, patient to follow up with dr. dumas and pcp regarding next steps regarding work up of her syncope. dr. dumas to also adress patient's moderate pulmonary htn. Problem List: 1. New onset atrial fibrillation Pain Ratin Pain Location: na Pain Goal: Remain pain free Pain Plan: na Tomorrow's Labs & Rationales: none Simon Horn 04/09/18 1458: Attending MD Review Statement Attending Statement Attending MD Statement: examined this patient, discuss w/resident/PA/FENCE ERECTOR SUPERVISOR, agreed w/resident/PA/FENCE ERECTOR SUPERVISOR, discussed with family, reviewed EMR data (avail) Attending Assessment/Plan: Palpitation/ Afib with RVR- pt spontaneously converted to NSR . Pt started back on cardizem and her heparin is being switched to eliquis. Palpitations resolved now. pt will f/u with cardiology Dr Dumas as an outpatient. Pt was made aware of the risks of bleeding from eliquis and pt encouraged to avoid sports and activites putting her at increased risk for head injury . pt expressed her understanding of the risks. ALso explained risk of GI bleeding and signs and symptoms to look for. see dc summary for more details.
[2018-04-09] MEDS ORDERED: ELIQUIS5 M1 PO ×2 (13:35→15:18)
[2018-04-09] MEDS ORDERED: DILTIAZEM ER120 M2 PO ×2 (13:35→15:18)
--- NOTE | 2018-04-09 14:24 | Patient Discharge Instructions ---
Discharge Instructions General Discharge Information You were seen/treated for: NEW ONSET AFIB Special Instructions: PLEASE FOLLOW UP WITH PCP IN ONE WEEK PLEASE FOLLOW UP WITH CLIENT ACCOUNT REPRESENTATIVE IN ONE WEEK Diet Continue normal diet: Yes Activity Full Activity/No Limits: Yes Acute Coronary Syndrome Inclusion Criteria At DC or during hospital stay patient has or had the following: ACS DIAGNOSIS No Discharge Core Measures Meds if any: Prescribed or Continued at Discharge Meds if any: NOT Prescribed or Continued at Discharge Congestive Heart Failure Inclusion Criteria At DC or during hospital stay patient has or had the following: CHF DIAGNOSIS No Discharge Core Measures Meds if any: Prescribed or Continued at Discharge Meds if any: NOT Prescribed or Continued at Discharge Cerebrovascular accident Inclusion Criteria At DC or during hospital stay patient has or had the following: CVA/TIA Diagnosis No Discharge Core Measures Meds if any: Prescribed or Continued at Discharge Meds if any: NOT Prescribed or Continued at Discharge Venous thromboembolism Inclusion Criteria VTE Diagnosis No VTE Type NONE VTE Confirmed by (Test) NONE Discharge Core Measures - Per Current guidelines, there needs to be overlap - treatment for the first 5 days of Warfarin therapy. - If discharged on Warfarin prior to 5 days of - overlap therapy, the patient will need to be - assessed for post discharge needs including - *Post discharge parental anticoagulation - *Warfarin and/or parental anticoagulation education - *Follow up date to check INR post discharge At least 5 days overlap therapy as Inpatient No Meds if any: Prescribed or Continued at Discharge Note: Overlap Therapy is Warfarin and Anticoagulant Meds if any: NOT Prescribed or Continued at Discharge
[2018-04-09 14:34] VITALS: BP 112/72
== END 2018-04-09 15:54 | DRG 310 ==
LOC: ERH 17:40 → 1NO 21:36 → ERHI 21:36 → ENRESERV 22:07 → ENTRNSPT 22:34 → 1NO 23:25 → CMPTRNSPT 04-08 06:57 → ENPENDDIS 04-09 15:46 → 1NO 04-09 15:54
PROVIDERS: Internal Medicine; Internal Medicine Interventional Cardiology; Physician Assistant; Physician Assistant Medical; Preventive Medicine Public Health & General Preventive Medicine
DX: I48.91 Unspecified atrial fibrillation (principal); M85.80 Other specified disorders of bone density and structure, unspecified site; I27.20 Pulmonary hypertension, unspecified; Z82.49 Family history of ischemic heart disease and other diseases of the circulatory system; H26.9 Unspecified cataract
CPT/HCPCS: 1NP; 36415; 36592; 71046; 82436; 93005; 93010; J1644

== ENCOUNTER 2018-04-10 07:15 | Observation (INO) | payer OTHER, MEDICARE ==
[~2018-04-10] VITALS: Ht 172.7 cm; Wt 58.5 kg
[~2018-04-10 07:15] MED LIST changes: +CARDIZEM CD180 M1 PO; +CO-ENZYME Q101 EACH PO; +DILTIAZEM ER120 M2 PO; +ELIQUIS5 M1 PO; +MULTI-DAY PLUS1 EAC1 PO; -MULTI-DAY VITA1 EACH PO; +OMEGA 3-6-9 11200 MG PO; +PROBIOTIC1 EACH PO; +VITAMIN C500 M7 PO
--- NOTE | 2018-04-10 08:20 | ED GENERAL ADULT ---
History of Present Illness General Chief Complaint: Palpitations Stated Complaint: PALPATATION, DISCHARGED 04/09 NEW ONSET A-FIB Source: patient Exam Limitations: no limitations Vital Signs & Intake/Output Vital Signs & Intake/Output Vital Signs Date Time Temp Pulse Resp B/P B/P Pulse O2 O2 Flow FiO2 Mean Ox Delivery Rate 04/10 1011 98.0 74 18 134/64 98 Room Air 04/10 0730 98.4 70 20 130/70 99 Room Air Allergies Coded Allergies: No Known Drug Allergies (Intermediate, NONE 04/10/18) Uncoded Allergies: DUST (Mild, TEARY 11/15/12) MOLD (Mild, TEARY 11/15/12) Reconcile Medications Apixaban (Eliquis) 5 MG TABLET 5 MG PO BID blood thinner . Ascorbic Acid (Vitamin C) 500 MG CAPSULE.ER 1 CAP PO DAILY Supplement ( Reported) Cholecalciferol (Vitamin D3) (Vitamin D3) (Unknown Strength) TABLET 2,000 MG PO DAILY SUPPLEMENT (Reported) Diltiazem Cd (Diltiazem ER) 120 MG CAP.ER.DEG 120 MG PO DAILY HEART RATE . Fish Oil/Borage/Flax/Om3,6,9#1 ([place] 3-6-9 1,200 MG Softgel) 1,200 MG CAPSULE 1 CAP PO DAILY Supplement (Reported) Lactobacillus Acidophilus (Probiotic) 10 BILLION CELL CAPSULE 1 CAP PO TID STOMACH HEALTH (Reported) Magnesium Oxide (Magnesium) (Unknown Strength) CAPSULE 400 MG PO DAILY SUPPLEMENT (Reported) Multivitamin (Multi-Day Vitamins) 1 EACH TABLET 1 TAB PO DAILY SUPPLEMENT ( Reported) Ubidecarenone/Vit E/Vit E Mix (Co-Enzyme Q10 100 MG Softgel) 100 MG-20 MG-15 MG CAPSULE 1 TAB PO DAILY Supplement (Reported) Triage Note: C/O PALPITATIONS SINCE 429. DENIES CHEST PAIN OR SOB. DISCHARGED FRO CARMITA 04/09, DXD WITH AFIB. STARTED ON ELIQUIST TODAY. STATES "I JUST DONT FEEL RIGHT" EKG DONE IN TRIAGE. Triage Nurses Notes Reviewed? yes Onset: Abrupt Duration: hour(s): Timing: recent history HPI: 04/10/28 8:28 AM This is a jaguar 72-year-old female presents to the emergency department complaining of palpitations and left subcostal pain. The patient states that she was discharged from the hospital yesterday for new onset A. fib. She is currently on Eliquis course and also Dilitiazm. She woke up at 4:30 in the morning with some diarrhea and also had some palpitations in the left subcostal pain. Past History Travel History Traveled to [place] past 21 day No Medical History Any Pertinent Medical History? 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 No Review of Systems Review of Systems Constitutional: Denies: fever. EENTM: Denies: visual changes. Respiratory: Denies: short of breath. Cardiovascular: Reports: see HPI. GI: Denies: abdominal pain. Genitourinary: Reports: no symptoms. Musculoskeletal: Reports: no symptoms. Skin: Reports: no symptoms. Neurological/Psychological: Reports: no symptoms. Hematologic/Endocrine: Reports: no symptoms. Immunologic/Allergic: Reports: no symptoms. Physical Exam Physical Exam General Appearance: well developed/nourished, alert, awake Head: atraumatic, normal appearance Eyes: Bilateral: normal appearance, PERRL, EOMI. Ears, Nose, Throat: normal pharynx, normal ENT inspection Neck: normal inspection, supple, full range of motion Respiratory: normal breath sounds, chest non-tender, no respiratory distress Cardiovascular: irregularly irregular Peripheral Pulses: 4+ radial (R), 4+ radial (L) Gastrointestinal: soft, non-tender Back: normal range of motion Extremities: no edema Neurologic/Psych: no motor/sensory deficits, awake, alert, oriented x 3 Skin: intact, normal color, warm/dry Core Measures ACS in differential dx? Yes CVA/TIA Diagnosis: No Sepsis Present: No Sepsis Focused Exam Completed? No Progress Differential Diagnoses I considered the following diagnoses in my evaluation of the patient: [SVT, bradycardia, acute coronary syndrome, dysrhythmia, pulmonary embolism, tachybradycardia syndrome] Plan of Care: Orders Procedure Date/time Status Heart Healthy Diet 04/[address] in observation 04/10 0951 Active Saline Lock 04/10 830 Active Telemetry/Mold Chipper 04/10 827 Active TROPONIN LEVEL 04/10 827 Complete CBC WITHOUT DIFFERENTIAL 04/10 827 Complete EKG 04/10 0717 Active Current Medications Sig/Alvarez Start time Last Medication Dose Stop Time Status Admin Propafenone HCl 150 MG Q8 04/10 1400 UNVr (Rythmol 150MG Tab) Laboratory Tests 04/10/18 0842: Troponin I < 0.01, CBC w Diff NO MAN DIFF REQ, RBC 4.79, MCV 91.0, MCH 31.1 H, MCHC 34.1, RDW 13.4, MPV 7.7, Gran % 69.7, Lymphocytes % 23.8, Monocytes % 4.5, Eosinophils % 0.7, Basophils % 1.3, Absolute Granulocytes 5.1, Absolute Lymphocytes 1.7, Absolute Monocytes 0.3, Absolute Eosinophils 0.1, Absolute Basophils 0.1 Initial ED EKG: NSR, PAC Departure Departure Disposition: STILL A PATIENT Condition: Stable Clinical Impression Primary Impression: Dysrhythmia Secondary Impressions: Chest pain Referrals: Colby MOTTA,Cecil Ordoñez (PCP/Family) Departure Forms: Customer Survey General Discharge Information Observation Note Spoke With: Neri MOTTA,Rich Physician Advisor Notified: HARRY BECKER DO Place Patient In: Non-ED OBS Care Area Rationale for Observation: My rational for observation is as follows [the patient needs to be placed in observation for serial troponins, cardiac monitoring, cardiology consultation, response to antiarrhythmic therapy]. Critical Care Note Critical Care Note Critical Care Time: non-applicable
[2018-04-10 08:51] LABS: ABSOLUTE BASOPHIL COUNT 0.1 /CUMM (0.0-0.2); ABSOLUTE EOSINOPHIL COUNT 0.1 /CUMM (0.0-0.7); ABSOLUTE GRANULOCYTE CT 5.1 /CUMM (1.4-6.5); ABSOLUTE LYMPH COUNT 1.7 /CUMM (1.2-3.4); ABSOLUTE MONOCYTE COUNT 0.3 /CUMM (0.10-0.60); BASOPHIL % 1.3 % (0.0-2.0); EOSINOPHIL % 0.7 % (0-5); GRANULOCYTE % 69.7 % (42.2-75.2); HEMATOCRIT 43.6 % (37-47); MEAN CORPUSCULAR HGB 31.1 PG (27.0-31.0); MEAN CORPUSCULAR HGB CONC 34.1 G/DL (33.0-37.0); MEAN PLATELET VOLUME 7.7 FL (7.4-10.4); PLATELET COUNT 276 /CUMM (130-400); RBC DISTRIBUTION WIDTH 13.4 % (11.5-14.5); RED BLOOD CELL CT 4.79 /CUMM (4.20-5.40); WHITE BLOOD CELL COUNT 7.3 /CUMM (4.8-10.8)
--- NOTE | 2018-04-10 11:40 | History & Physical ---
Aure Pattersonyoandy 04/10/18 1140: General Information and HPI MD Statement: I have seen and personally examined NICKI PEDROZA and documented this H&P. The patient is a 72 year old F who presented with a patient stated chief complaint of [PALPITATIONS]. Source of Information: patient Exam Limitations: no limitations History of Present Illness: This is a 72-year-old male past medical history of migraine headaches, previous premature atrial complexes, osteopenia, knee arthroplasty who came in with chief complaint of anxiety and palpitations since the night prior to admission. She also complained of some associated chest tightness, 2 out of 3, that radiated to the left back associated with the episodes of palpitations. Apparently in December 2017 she was seen by her primary care - Dr. Bowman for a preop evaluation for vitrectomy, she was found to have PACs during preop EKG, however she continued to have the surgery with no complications. She continued to have anxiety and palpitations and therefore is was referred to Dr. Dumas who conducted can nuclear stress test which was within normal limit and an echocardiogram which had normal EF with no major findings other than mild to moderate pulmonary hypertension. She was recently admitted and discharged 2 days prior to today's presentation for repeat episode of anxiety and palpitations, however this time she was found to have atrial fibrillation, this was deemed to be new onset, she was back into sinus rhythm on discharge however she was discharged on Eliquis and p.o. Cardizem. She comes back again because since today morning she has been complaining of anxiety, palpitations and chest tightness which woke her hop in the middle of the sleep. She denied any shortness of breath, swelling, nausea, vomiting. She did endorse a history of 3 episodes of diarrhea in the morning after which she has not had any further episodes while in the emergency department. She does not have any other significant past medical history, endorses history of using some [id number] herbal supplements, she is very active, exercises , walks, rides bicycle as well as loves to ski. Allergies/Medications Allergies: Coded Allergies: No Known Drug Allergies (Intermediate, NONE 04/10/18) Uncoded Allergies: DUST (Mild, TEARY 11/15/12) MOLD (Mild, TEARY 11/15/12) Home Med list Apixaban (Eliquis) 5 MG TABLET 5 MG PO BID blood thinner . Ascorbic Acid (Vitamin C) 500 MG CAPSULE.ER 1 CAP PO DAILY Supplement ( Reported) Cholecalciferol (Vitamin D3) (Vitamin D3) (Unknown Strength) TABLET 2,000 MG PO DAILY SUPPLEMENT (Reported) Diltiazem Cd (Diltiazem ER) 120 MG CAP.ER.DEG 120 MG PO DAILY HEART RATE . Fish Oil/Borage/Flax/Om3,6,9#1 ([place] 3-6-9 1,200 MG Softgel) 1,200 MG CAPSULE 1 CAP PO DAILY Supplement (Reported) Genistein/Cit Zn Bisgly/Vit D3 (Fosteum Capsule) 27 MG-20 MG-200 UNIT CAPSULE 2 CAP PO DAILY OSTEOPENIA (Reported) Lactobacillus Acidophilus (Probiotic) 10 BILLION CELL CAPSULE 1 CAP PO DAILY GI (Reported) Magnesium Oxide (Magnesium) (Unknown Strength) CAPSULE 400 MG PO DAILY SUPPLEMENT (Reported) Multivitamin-Min/Iron/FA/Vit K (Multi-Day Plus Minerals Tablet) 18 MG IRON-400 MCG-25 MCG TABLET 1 TAB PO DAILY SUPPLEMENT (Reported) Propafenone HCl (Rythmol Sr) 325 MG CAP.ER.12H 325 MG PO BID A.FIB . 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 spouse Services at Home: None Primary Language: Mongolian ETOH Use: occasional use Functional Ability ADLs Independent: dressing, eating, toileting, bathing. Ambulation: independent IADLs Independent: shopping, housework, finances, food prep, telephone, transportation , medication admin. Review of Systems Review of Systems Constitutional: Reports: see HPI. Cardiovascular: Reports: chest pain, palpitations. Respiratory: Reports: no symptoms. GI: Reports: diarrhea. Genitourinary: Reports: no symptoms. Musculoskeletal: Reports: no symptoms. Exam & Diagnostic Data Last 24 Hrs of Vital Signs/I&O Vital Signs Date Time Temp Pulse Resp B/P B/P Pulse O2 O2 Flow FiO2 Mean Ox Delivery Rate 04/10 1448 97.9 81 18 140/82 99 Room Air 04/10 1308 98.3 80 18 128/78 99 Room Air 04/10 1056 98.0 74 134/64 04/10 1054 98.0 74 18 134/64 04/10 1011 98.0 74 18 134/64 98 Room Air 04/10 0730 98.4 70 20 130/70 99 Room Air Intake & Output 04/10 1600 04/10 0800 04/10 0000 Intake Total 250 0 Output Total Balance 250 0 Intake, Oral 250 0 Number 1 Bowel Movements Patient 58.513 kg 58.513 kg Weight Weight Reported by Patient Measurement Method Physical Exam General Appearance Alert, Oriented X3, Cooperative, No Acute Distress Skin No Rashes, No Breakdown Cardiovascular Normal S1, Normal S2 Lungs Clear to Auscultation, Normal Air Movement Abdomen Normal Bowel Sounds, Soft, No Tenderness Last 24 Hrs of Labs/Haresh: Laboratory Tests 04/10/18 1147: Sodium Cancelled, Potassium Cancelled, Chloride Cancelled, Carbon Dioxide Cancelled, Anion Gap Cancelled, BUN Cancelled, Creatinine Cancelled, BUN/ Creatinine Ratio Cancelled 04/10/18 0842: Anion Gap 10, Estimated GFR > 60, BUN/Creatinine Ratio 25.7 H, Troponin I < 0.01, TSH &T3 &Free T4 Intrp 2.810, PT 15.9 H, INR 1.45 H, APTT 36, CBC w Diff NO MAN DIFF REQ, RBC 4.79, MCV 91.0, MCH 31.1 H, MCHC 34.1, RDW 13.4, MPV 7.7, Gran % 69.7, Lymphocytes % 23.8, Monocytes % 4.5, Eosinophils % 0.7, Basophils % 1.3, Absolute Granulocytes 5.1, Absolute Lymphocytes 1.7, Absolute Monocytes 0.3 , Absolute Eosinophils 0.1, Absolute Basophils 0.1 Diagnostic Data EKG Results Normal sinus rhythm, rate of 72, multiple PACs, QTC of 434. Assessment/Plan Assessment: This is a 72-year-old male past medical history of migraine headaches, previous premature atrial complexes, osteopenia, knee arthroplasty who came in with chief complaint of anxiety and palpitations since the night prior to admission. She also complained of some associated chest tightness, 2 out of 3, that radiated to the left back associated with the episodes of palpitations. Her vitals on presentation temperature of 98.0, pulse of 74, respiration of 18/ min, blood pressure 134/64, she was saturating 99% on room air. No white count, H/H of 14.9/43.6, platelet of 276. Electrolytes within normal limits, BUN/creatinine 18/0.7, troponin I negative. T4 and TSH negative. Patient will be placed under observation for 24 hours on telemetry Problem #1 Paroxysmal atrial fibrillation on Eliquis and Cardizem. * Continue to monitor on telemetry, continue to monitor vitals, intake and output, TSH within normal limits, currently normal sinus rhythm, but has multiple PACs, last echocardiogram was done 12/14/2017 which showed an ejection fraction greater than 65% and right ventricular systolic pressure of 45-50 mmHg, will not repeat echocardiogram at this point, unless recommended by cardiology. * So recent treadmill nuclear stress test was within normal limits. * We will begin the patient on propafenone 160 mg 4 times daily to help maintain sinus rhythm. * Cardiology consult appreciated. * We will continue Cardizem at her home dosage, hold for low heart rate and low blood pressure. * Continue Eliquis at home dosage. * Continue all other home medications. * She seems ot be taking some herbal supplements, which we aksed to bring to know what it is and recommended to hold them for now. FC Heart healthy diet. Pain pathway. DVT prophylaxis with Eliquis. As Ranked By This Provider Problem List: 1. New onset atrial fibrillation Core Measures/Misc (04/30) Acute Coronary Syndrome ACS Diagnosis: No Congestive Heart Failure Congestive Heart Failure Diagnosis No Cerebrovascular Accident CVA/TIA Diagnosis: No VTE (View Protocol) VTE Risk Factors No risk factors No Mechanical VTE Prophylaxis d/t Other No VTE Pharm Prophylaxis d/t Other Sepsis (View protocol) Sepsis Present: No If YES complete Sepsis Event Note If YES complete Sepsis Event Note Luis Hollingsworth MD 04/10/18 1603: Core Measures/Misc (04/30) Sepsis (View protocol) If YES complete Sepsis Event Note If YES complete Sepsis Event Note Attending MD Review Statement Attending Statement Attending MD Statement: examined this patient, discuss w/resident/PA/LAMINATING PRESS OPERATOR, agreed w/resident/PA/LAMINATING PRESS OPERATOR, discussed with family, reviewed EMR data (avail), discussed with nursing, amended to note Attending Assessment/Plan: Patient seen and examined. Discharge yesterday after being admitted \with newly diagnosed atrial fibrillation. She presented at that time with complaints of palpitations and chest discomfort. During the hospitalization she went in and out of atrial fibrillation. She returns complaints of palpitations. Emergency room she arrived afebrile. She is currently in sinus rhythm. She has been evaluated by the cardiology service and decision has been made to start the patient on antiarrhythmic therapy with propafenone due to the symptomatic nature of paroxysmal atrial fibrillation. We will continue patient on this medication and monitor her over the next 24-48 hours. She will continued on Cardizem and Eliquis as recommended by the cardiology service. She has chronic mildly elevated transaminase levels. It was presumed to be secondary to an infection when she presented with markedly elevated levels last year. Level has been stable. Patient reports taking herbal supplements. It is unknown if this is related to her transaminitis it is unknown if this medication. Will interfere with her antiarrhythmic therapy. She has been advised to stop this medication and to follow-up with her natural-path clinician as an outpatient.
[2018-04-10 12:13] LABS: PT 15.9 SEC (9.4-12.5); PTT 36 SEC (25-37)
--- NOTE | 2018-04-10 12:58 | Cons- Cardiology ---
General Information and HPI Consulting Request Date of Consult: 04/10/18 Requested By: Luis Hollingsworth MD History of Present Illness: Eunice is a 72 year old female with no significant past cardiac history who has been seen in the office for palpitations. At her baseline, she is vigorously active and likes to hike. Over the past year or so this patient has noted palpitations described as a pounding sensation that is on rare occasions associated with lightheadedness. These palpitations are clearly related to copious PAC's which are found on her ECG. A couple days ago she was also seen in [facility] with a clear paroxysm of atrial fibrillation with increased heart rate. She converted spontaneously to a sinus rhythm and was started on Cardizem and Eliquis. Unfortunately, she returns for recurrent palpitations that appear to be copious PAC's. Although this patient denies any exertional shortness of breath, she does feel that she needs to take a deep breath when she has a lot of these palpitations. Typically, these palpitations last for seconds to minutes but there was at least one day that they were present throughout the day. For the most part, this patient is active without chest discomfort although she does recall one day that she did experience about two minutes of chest pain at rest. Her palpitations decreased with Cardizem, but not enough. Cardiac workup has included an echocardiogram that shows a normal EF of 65% with no evidence of left atrial enlargement and mild MR with trace TR. Risk stratification was done with a treadmill nuclear stress test that showed an excellent exercise tolerance without ischemia Allergies/Medications Allergies: Coded Allergies: No Known Drug Allergies (Intermediate, NONE 04/10/18) Uncoded Allergies: DUST (Mild, TEARY 11/15/12) MOLD (Mild, TEARY 11/15/12) Home Med List: Apixaban (Eliquis) 5 MG TABLET 5 MG PO BID blood thinner . Ascorbic Acid (Vitamin C) 500 MG CAPSULE.ER 1 CAP PO DAILY Supplement ( Reported) Cholecalciferol (Vitamin D3) (Vitamin D3) (Unknown Strength) TABLET 2,000 MG PO DAILY SUPPLEMENT (Reported) Diltiazem Cd (Diltiazem ER) 120 MG CAP.ER.DEG 120 MG PO DAILY HEART RATE . Fish Oil/Borage/Flax/Om3,6,9#1 ([place] 3-6-9 1,200 MG Softgel) 1,200 MG CAPSULE 1 CAP PO DAILY Supplement (Reported) Lactobacillus Acidophilus (Probiotic) 10 BILLION CELL CAPSULE 1 CAP PO TID STOMACH HEALTH (Reported) Magnesium Oxide (Magnesium) (Unknown Strength) CAPSULE 400 MG PO DAILY SUPPLEMENT (Reported) Multivitamin (Multi-Day Vitamins) 1 EACH TABLET 1 TAB PO DAILY SUPPLEMENT ( Reported) Ubidecarenone/Vit E/Vit E Mix (Co-Enzyme Q10 100 MG Softgel) 100 MG-20 MG-15 MG CAPSULE 1 TAB PO DAILY Supplement (Reported) Review of Systems Review of Systems: A review of systems is unremarkable. 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 FATHER (emphysema). Psychosocial History Who Do You Live With? spouse Services at Home: None Primary Language: Sudanese Smoking Status: Never Smoked ETOH Use: occasional use (3-4 drinks per week) Functional Ability ADLs Independent: dressing, eating, toileting, bathing. Ambulation: independent IADLs Independent: shopping, housework, finances, food prep, telephone, transportation , medication admin. Exam & Diagnostic Data Vital Signs and I&O Vital Signs Date Time Temp Pulse Resp B/P B/P Pulse O2 O2 Flow FiO2 Mean Ox Delivery Rate 04/10 1056 98.0 74 134/64 04/10 1054 98.0 74 18 134/64 04/10 1011 98.0 74 18 134/64 98 Room Air 04/10 0730 98.4 70 20 130/70 99 Room Air Intake & Output 04/10 1600 04/10 0800 04/10 0000 04/09 1600 04/09 0000 Intake Total 0 Output Total Balance 0 Intake, Oral 0 Patient 129 lb Weight Weight Reported by Patient Measurement Method Physical Exam: General: WD/WN female in NAD; alert and oriented x 3 HEENT: NC/AT, PERRL, EOMI Neck: no JVD, no carotid bruit Heart: RRR with frequent ectopy, no murmur Lungs: clear bilaterally Abdomen: soft, NT, +ve bowel sounds Extremities: no edema Assessment/Plan Assessment/Plan * This patient has paroxysmal atrial fibrillation and copious PAC's which she feels and is uncomfortable with. She has a normal EF and no evidence of ischemia on a recent stress test. We will begin the class 1C agent propafenone at 160mg QID to help maintain a sinus rhythm and to help suppress her PAC's which this drug is known to be helpful for. Our terminal carman plan will be to change her to Propafenone SR 325mg BID. Continue Cardizem and monitor her heart rate and blood pressure. Continue Eliquis for stroke prophylaxis. No testing is needed. Consult Acknowledgment - Thank you for your consult request.
[2018-04-10 14:48] VITALS: BP 140/82
[2018-04-10 21:08] VITALS: BP 118/72
[2018-04-11 06:32] VITALS: BP 116/75
--- NOTE | 2018-04-11 07:26 | PN- Housestaff ---
Kareem Mogran 04/11/18 0726: Subjective Follow-up For: palpitations Subjective: overnight patients heartrate ranged from 47-89. Patient states she is feeling well today, she is not experiencing palpitations. Denies chest pain, shortness of breath, weakness, confusion. Review of Systems Constitutional: Denies: chills, diaphoresis, fever. Cardiovascular: Denies: chest pain, palpitations. Respiratory: Denies: cough, short of breath. Gastrointestinal: Denies: abdominal pain, changes in stool. Objective Last 24 Hrs of Vital Signs/I&O Vital Signs Date Time Temp Pulse Resp B/P B/P Pulse O2 O2 Flow FiO2 Mean Ox Delivery Rate 04/11 0841 152/90 04/11 0632 98.2 54 20 116/75 99 Room Air 04/11 0058 108/66 04/11 0000 Room Air 04/10 2108 98.3 90 20 118/72 99 04/10 1907 90 120/64 04/10 1448 97.9 81 18 140/82 99 Room Air 04/10 1308 98.3 80 18 128/78 99 Room Air 04/10 1056 98.0 74 134/64 04/10 1054 98.0 74 18 134/64 04/10 1011 98.0 74 18 134/64 98 Room Air Intake & Output 04/11 1600 04/11 0800 04/11 0000 Intake Total 400 Output Total Balance 400 Intake, Oral 400 Physical Exam General Appearance: Alert, Oriented X3, Cooperative Cardiovascular: Normal S1, Normal S2, Irregular rhythm Lungs: Clear to Auscultation, Normal Air Movement Abdomen: Normal Bowel Sounds, Soft, No Tenderness Extremities: No Cyanosis, No Edema, Normal Pulses Assessment/Plan Assessment: This is a 72-year-old male past medical history of migraine headaches, previous premature atrial complexes, osteopenia, knee arthroplasty who came in with chief complaint of anxiety and palpitations since the night prior to admission. Patient was discharged on 04/09/2018 after she had spontaneously converted to normal sinus rhythm. Upon discharge she felt stable, on around 4 AM patient began to experience chest tightness, 2 out of 3, that radiated to the left back associated with the episodes of palpitations. Problem list: 1. paroxysmal nonvalvular atrial fibrillation #Paroxysmal nonvalvular atrial fibrillation: Patient was discharged on 04/09/2018 with Eliquis and Cardizem after being diagnosed with new onset nonvalvular A. fib of unknown etiology. Thyroid panel is normal. Stress test on March 13 was normal. Echo on December 14, 2017 negative for regional wall motion abnormalities, mild thickening calcification of mitral valve leaflets, mild mitral regurg, elevated right ventricular systolic pressure, left ventricular ejection fraction greater than 65%. change patient to propafenone SR 325 mg twice daily we will await further cardiology input regarding titration CODE STATUS: Full code Diet: Heart healthy DVT prophylaxis: Eliquis Problem List: 1. New onset atrial fibrillation Pain Ratin Pain Location: N/A Pain Goal: Remain pain free Pain Plan: TYLENOL Tomorrow's Labs & Rationales: NONE Luis Hollingsworth MD 04/11/18 1110: Attending MD Review Statement Attending Statement Attending MD Statement: examined this patient, discuss w/resident/PA/CLOTHES MARKER, agreed w/resident/PA/CLOTHES MARKER, reviewed EMR data (avail), discussed with nursing, discussed with case mgmt, amended to note Attending Assessment/Plan: Patient seen and examined. Resting comfortably not in any acute distress. No issues overnight. She remains in normal sinus rhythm on telemetry monitoring. She reports mild palpitations on and off but denies any symptoms similar to what led her to come to the hospital. We will continue her current antiarrhythmic therapy and follow-up with the cardiology service regarding dose adjustment and discharge planning.
[2018-04-11 08:41] VITALS: BP 152/90
[2018-04-11 14:24] VITALS: BP 120/60
[2018-04-11 14:47] VITALS: BP 120/60
--- NOTE | 2018-04-11 16:11 | PN- Cardiology ---
Subjective Subjective: * No complaints of palpitations or lightheadedness. * sinus bradycardia at times Objective Vital Signs and I&Os Vital Signs Date Time Temp Pulse Resp B/P B/P Pulse O2 O2 Flow FiO2 Mean Ox Delivery Rate 04/11 1447 60 120/60 04/11 1424 97.5 60 18 120/60 98 Room Air 04/11 1026 67 152/90 04/11 0841 152/90 04/11 0632 98.2 54 20 116/75 99 Room Air 04/11 0058 108/66 04/11 0000 Room Air 04/10 2108 98.3 90 20 118/72 99 04/10 1907 90 120/64 Intake & Output 04/11 1600 04/11 0800 04/11 0000 04/10 1600 04/10 0000 Intake Total 600 400 250 0 Output Total Balance 600 400 250 0 Intake, Oral 600 400 250 0 Number 1 Bowel Movements Patient 129 lb 129 lb Weight Weight Reported by Patient Measurement Method Physical Exam: General: WD/WN female in NAD; alert and oriented x 3 HEENT: NC/AT, PERRL, EOMI Neck: no JVD, no carotid bruit Heart: RRR without ectopy, no murmur Lungs: clear bilaterally Abdomen: soft, NT, +ve bowel sounds Extremities: no edema Assessment/Plan Assessment/Plan * This patient has paroxysmal atrial fibrillation and copious PAC's which she feels and is uncomfortable with. As such, she was started on Propafenone in addition to Cardizem and she is doing much better. Her PAC's have resolved and she is in a stable sinus rhythm without symptoms. Although mildly bradycardic, this patient is athletic at baseline and has no lightheadedness. We will discharge her on Propafenone SR 325mg BID and Cardizem CD 120mg daily. Continue Eliquis for stroke prophylaxis. Follow up in the office in one week. Continue telemetry? No
[2018-04-11] MEDS ORDERED: RYTHMOL PO ×2 (16:27→16:59)
--- NOTE | 2018-04-11 16:37 | Patient Discharge Instructions ---
Discharge Instructions General Discharge Information You were seen/treated for: Atrial fibrillation Watch for these problems: Fever, chest pain, palpitations, shortness of breath Special Instructions: Please take medications as directed. Please follow PCP and surgical pathologist Dr. Dumas in 1 week Diet Continue normal diet: Yes Recommended Diet: Heart Healthy Activity Full Activity/No Limits: Yes Acute Coronary Syndrome Inclusion Criteria At DC or during hospital stay patient has or had the following: ACS DIAGNOSIS No Discharge Core Measures Meds if any: Prescribed or Continued at Discharge Meds if any: NOT Prescribed or Continued at Discharge Congestive Heart Failure Inclusion Criteria At DC or during hospital stay patient has or had the following: CHF DIAGNOSIS No Discharge Core Measures Meds if any: Prescribed or Continued at Discharge Meds if any: NOT Prescribed or Continued at Discharge Cerebrovascular accident Inclusion Criteria At DC or during hospital stay patient has or had the following: CVA/TIA Diagnosis No Discharge Core Measures Meds if any: Prescribed or Continued at Discharge Meds if any: NOT Prescribed or Continued at Discharge Venous thromboembolism Inclusion Criteria VTE Diagnosis No VTE Type NONE VTE Confirmed by (Test) NONE Discharge Core Measures - Per Current guidelines, there needs to be overlap - treatment for the first 5 days of Warfarin therapy. - If discharged on Warfarin prior to 5 days of - overlap therapy, the patient will need to be - assessed for post discharge needs including - *Post discharge parental anticoagulation - *Warfarin and/or parental anticoagulation education - *Follow up date to check INR post discharge At least 5 days overlap therapy as Inpatient No Meds if any: Prescribed or Continued at Discharge Note: Overlap Therapy is Warfarin and Anticoagulant Meds if any: NOT Prescribed or Continued at Discharge
[2018-04-12] MEDS ORDERED: FOSTEUM CAPSUL1 EACH PO (17:21)
== END 2018-04-11 17:20 ==
LOC: ERH 07:15 → ERHI 08:30 → 1NO 08:30 → ENRESERV 12:54 → ENTRNSPT 13:45 → 1NO 13:45 → EDTRNSPTSTS 13:50 → EDTRNSPT 13:50 → 1NO 13:52 → CMPTRNSPT 14:22 → 1NO 04-11 08:49 → ENPENDDIS 04-11 17:08 → 1NO 04-11 17:20
PROVIDERS: Emergency Medicine; Internal Medicine
DX: I48.0 Paroxysmal atrial fibrillation (principal); Z79.01 Long term (current) use of anticoagulants; G43.909 Migraine, unspecified, not intractable, without status migrainosus; M85.80 Other specified disorders of bone density and structure, unspecified site; F41.9 Anxiety disorder, unspecified; H35.30 Unspecified macular degeneration; I49.1 Atrial premature depolarization
CPT/HCPCS: 36592; 82436; 93005; 93010; G0378

== ENCOUNTER 2018-04-12 12:35 | Emergency (ER) | payer OTHER, MEDICARE ==
[~2018-04-12] VITALS: Ht 172.7 cm; Wt 58.1 kg
[~2018-04-12 12:35] MED LIST changes: +RYTHMOL PO
[2018-04-12 13:47] LABS: ABSOLUTE BASOPHIL COUNT 0 /CUMM (0.0-0.2); ABSOLUTE EOSINOPHIL COUNT 0 /CUMM (0.0-0.7); ABSOLUTE GRANULOCYTE CT 5.6 /CUMM (1.4-6.5); ABSOLUTE MONOCYTE COUNT 0.3 /CUMM (0.10-0.60); BASOPHIL % 0.3 % (0.0-2.0); EOSINOPHIL % 0.5 % (0-5); GRANULOCYTE % 70.1 % (42.2-75.2); HEMATOCRIT 40.7 % (37-47); MEAN CORPUSCULAR HGB 31.8 PG (27.0-31.0); MEAN CORPUSCULAR HGB CONC 34.9 G/DL (33.0-37.0); MEAN CORPUSCULAR VOLUME 90.9 FL (81.0-99.0); MEAN PLATELET VOLUME 7.9 FL (7.4-10.4); PLATELET COUNT 281 /CUMM (130-400); RBC DISTRIBUTION WIDTH 13.5 % (11.5-14.5); RED BLOOD CELL CT 4.48 /CUMM (4.20-5.40)
[2018-04-12 14:08] LABS: PT 14.3 SEC (9.4-12.5); PTT 34 SEC (25-37)
--- NOTE | 2018-04-12 17:17 | ED GENERAL ADULT ---
History of Present Illness General Chief Complaint: General Adult Stated Complaint: SIB DR WAGGONER R/O STROKE D/T NEW ONSET AFIB DX Source: patient Exam Limitations: no limitations Vital Signs & Intake/Output Vital Signs & Intake/Output Vital Signs Date Time Temp Pulse Resp B/P B/P Pulse O2 O2 Flow FiO2 Mean Ox Delivery Rate 04/12 1805 98.8 68 18 122/80 98 04/12 1655 Room Air 04/12 1240 98.4 67 18 131/70 98 Room Air Allergies Coded Allergies: No Known Drug Allergies (Intermediate, NONE 04/10/18) Uncoded Allergies: DUST (Mild, TEARY 11/15/12) MOLD (Mild, TEARY 11/15/12) Reconcile Medications Apixaban (Eliquis) 5 MG TABLET 5 MG PO BID blood thinner . Ascorbic Acid (Vitamin C) 500 MG CAPSULE.ER 1 CAP PO DAILY Supplement ( Reported) Cholecalciferol (Vitamin D3) (Vitamin D3) (Unknown Strength) TABLET 2,000 MG PO DAILY SUPPLEMENT (Reported) Diltiazem Cd (Diltiazem ER) 120 MG CAP.ER.DEG 120 MG PO DAILY HEART RATE . Fish Oil/Borage/Flax/Om3,6,9#1 ([place] 3-6-9 1,200 MG Softgel) 1,200 MG CAPSULE 1 CAP PO DAILY Supplement (Reported) Genistein/Cit Zn Bisgly/Vit D3 (Fosteum Capsule) 27 MG-20 MG-200 UNIT CAPSULE 2 CAP PO DAILY OSTEOPENIA (Reported) Lactobacillus Acidophilus (Probiotic) 10 BILLION CELL CAPSULE 1 CAP PO DAILY GI (Reported) Magnesium Oxide (Magnesium) (Unknown Strength) CAPSULE 400 MG PO DAILY SUPPLEMENT (Reported) Multivitamin-Min/Iron/FA/Vit K (Multi-Day Plus Minerals Tablet) 18 MG IRON-400 MCG-25 MCG TABLET 1 TAB PO DAILY SUPPLEMENT (Reported) Propafenone HCl (Rythmol Sr) 325 MG CAP.ER.12H 325 MG PO BID A.FIB . Ubidecarenone/Vit E/Vit E Mix (Co-Enzyme Q10 100 MG Softgel) 100 MG-20 MG-15 MG CAPSULE 1 TAB PO DAILY Supplement (Reported) Triage Note: 72 YO FEMALE SENT TO ER BY DR WAGGONER FOR R/O STROKE. PT REPORTS HX OF NEW ONSET AFIB. REPORTS TODAY HAS BLURRY VISION SINCE 0430 WHEN WAKING UP. STATES SHE BELIVES THE BLURRY IS IN BOTH EYES BUT STATES SHE HAS BAD EYES AND CANT TELL. DENIES HEADACHE. NO WEKANESS IN EXTREMTIIES. Triage Nurses Notes Reviewed? yes HPI: 72-year-old female with past medical history of A-fib presents with blurry vision and feeling of numbness in bilateral upper extremities. History of blurry vision but does not feel out of the ordinary which occurred at 430 this morning. Keep leg distribution of numbness occurred around 9 AM this morning. Both complaints subsided shortly after onset. Patient denies any weakness facial asymmetry speech difficulty or trouble moving. Patient contacted her rejected items clerk who advised her to proceed to the emergency department. Past History Travel History Traveled to [place] past 21 day No Medical History Any Pertinent Medical History? see below for history Neurological: NONE EENT: allergies, macular degeneration (s/p surgery x 2) Cardiovascular: AFIB, PACs Respiratory: NONE Gastrointestinal: NONE Hepatic: elevated LFT's Renal: NONE Musculoskeletal: osteopenia Psychiatric: NONE Endocrine: NONE Blood Disorders: NONE Cancer(s): NONE CONSUMER ADVOCATE/Reproductive: NONE Other Medical Hx: gabrielle fever History of MRSA: No History of VRE: No History of CDIFF: No Surgical History Surgical History: cataract removal, tubal ligation, R knee arthroscopy surgery for meniscal tear Psychosocial History Who do you live with Spouse Services at Home None What is your primary language Malay Tobacco Use: Never used Family History Family History, If Any: MOTHER (CVA, HTN, permanent pacemaker). FATHER (emphysema). Hx Contributory? Yes Review of Systems Review of Systems Constitutional: Reports: no symptoms. Denies: diaphoresis, malaise, weakness. EENTM: Reports: no symptoms, blurred vision. Denies: visual changes, eye pain, eye drainage, eye tearing, icterus, ear pain, ear redness, hearing changes, nasal congestion, throat pain, mouth pain. Respiratory: Reports: no symptoms. Cardiovascular: Reports: no symptoms. Denies: chest pain, palpitations, peripheral edema. GI: Reports: no symptoms. Genitourinary: Reports: no symptoms. Musculoskeletal: Reports: no symptoms. Skin: Reports: no symptoms. Neurological/Psychological: Reports: no symptoms. Hematologic/Endocrine: Reports: no symptoms. Immunologic/Allergic: Reports: no symptoms. All Other Systems: Reviewed and Negative Physical Exam Physical Exam General Appearance: well developed/nourished, no apparent distress, comfortable Head: atraumatic, normal appearance Eyes: Bilateral: normal appearance, PERRL, EOMI, pale conjunctivae. Ears, Nose, Throat: normal pharynx, normal ENT inspection Neck: normal inspection, supple, full range of motion Respiratory: chest non-tender, lungs clear Cardiovascular: normal peripheral pulses, S1 S2 normal. No M/G/R. Gastrointestinal: soft, non-tender Reflexes: 4+: bicep (R), bicep (L), tricep (L), tricep (L), knee (R), knee (L), ankle (R), ankle (L). Skin: intact, normal color Core Measures ACS in differential dx? No CVA/TIA Diagnosis: No NIH Stroke Scale (24 Hours) NIH Stroke Scale (24 Hours) Response Value Level of Consciousness alert 0 LOC Questions answers both correctly 0 LOC Commands obeys both correctly 0 Best Gaze normal 0 Visual [place] no visual loss 0 Facial Paresis normal 0 Motor Arm - Left no drift 0 Motor Arm - Right no drift 0 Motor Leg - Left no drift 0 Motor Leg - Right no drift 0 Limb Ataxia no ataxia 0 Sensory normal 0 Best Language no aphasia 0 Dysarthria normal articulation 0 Extinction and Inattention no neglect 0 Total 0 Sepsis Present: No Sepsis Focused Exam Completed? No Progress Differential Diagnoses I considered the following diagnoses in my evaluation of the patient: ACS, CVA, medication side effect. Plan of Care: Orders Procedure Date/time Status TROPONIN LEVEL 04/12 1256 Complete PARTIAL THROMBOPLASTIN TIME 04/12 1256 Complete PROTHROMBIN TIME 04/12 1256 Complete COMPREHENSIVE METABOLIC PANEL 04/12 1256 Complete CBC WITHOUT DIFFERENTIAL 04/12 1256 Complete EKG 04/12 1256 Active Laboratory Tests 04/12/18 1328: Anion Gap 8, Estimated GFR > 60, BUN/Creatinine Ratio 22.5, Glucose 128 H, Calcium 9.8, Total Bilirubin 0.4, AST 40 H, ALT 52, Alkaline Phosphatase 88, Troponin I < 0.01, Total Protein 7.7, Albumin 4.2, Globulin 3.5, Albumin/ Globulin Ratio 1.2, PT 14.3 H, INR 1.31 H, APTT 34, CBC w Diff NO MAN DIFF REQ , RBC 4.48, MCV 90.9, MCH 31.8 H, MCHC 34.9, RDW 13.5, MPV 7.9, Gran % 70.1, Lymphocytes % 24.7, Monocytes % 4.4, Eosinophils % 0.5, Basophils % 0.3, Absolute Granulocytes 5.6, Absolute Lymphocytes 2.0, Absolute Monocytes 0.3, Absolute Eosinophils 0, Absolute Basophils 0 Initial ED EKG: Sinus rhythm with occasional PAC. Normal axis. Negative for ST segment deviation or t-wave inverstion. No STEMI. Negative for interval changes from prior ECG. Comments: Ms Rai presented with transient cape like numbness which resolved quickly. In addition experienced transient blurry vision of eyes bilaterally at 4 am this morning which she states is similar to her normal blurry vision. She took her first dose of Propafenone this morning for afib with PACs. Departure Departure Disposition: HOME OR SELF CARE Condition: Stable Clinical Impression Primary Impression: Blurry vision, bilateral Secondary Impressions: Numbness and tingling of both upper extremities Referrals: Colby MOTTA,Cecil Ordoñez (PCP/Family) Alesia MOTTA PHD,Ed Mdcaniel Departure Forms: Customer Survey General Discharge Information Comments Continue current medical regiment. Critical Care Note Critical Care Note Critical Care Time: non-applicable
[2018-04-12] MEDS ORDERED: FOSTEUM CAPSUL1 EACH PO (17:21)
[2018-04-12 18:05] VITALS: BP 122/80
== END 2018-04-12 18:06 ==
LOC: ERH 12:35
PROVIDERS: Physician Assistant Medical
DX: H53.8 Other visual disturbances (principal); R20.0 Anesthesia of skin; R20.2 Paresthesia of skin; I48.91 Unspecified atrial fibrillation; R79.89 Other specified abnormal findings of blood chemistry; Z79.01 Long term (current) use of anticoagulants
CPT/HCPCS: 93005; 93010